=== PATIENT | male | born 1935 | race Caucasian/White ===

== ENCOUNTER 2021-03-04 20:41 | Observation (INO) | payer MEDICARE ==
[2021-03-04] MEDS ORDERED: Acetaminophen 325 MG TAB PO PRN (22:54)
[2021-03-04] MEDS ORDERED: Nitroglycerin 0.4 MG TAB (25 Tab Bottle) SL PRN (22:54)
[2021-03-04] MEDS ORDERED: Nitroglycerin 2% Ointment 1 INCH/1 GM Packet ONE (23:31)
[2021-03-04 23:46] LABS: Troponin I Less than 0.010 ng/mL (< 0.028)
[2021-03-04] MEDS ORDERED: Nitroglycerin 2% Ointment 1 INCH/1 GM Packet TOP SCH (23:59)
[2021-03-05 02:21] LABS: Platelet Count 98 10x3/uL (150-450)
[2021-03-05 02:22] LABS: Hemoglobin 13.2 g/dL (13.5-17.5); Mean Corpuscular Hemoglobin 30.6 pg (27.0-33.0); Mean Corpuscular Volume 87.5 fl (81.2-95.1); Mean Platelet Volume 9.8 fl (7.4-10.4); RBC Distribution Width 12.8 % (11.5-14.5); Red Blood Cell (RBC) Count 4.31 10x6/uL (4.32-5.72); White Blood Cell (WBC) Count 3.9 10x3/uL (3.5-10.5)
[2021-03-05 02:23] LABS: MDiff Complete? YES
[2021-03-05 02:29] LABS: Eosinophils 7 % (0-10); Monocytes 5 % (0-10); Neutrophil 38 % (42-75)
[2021-03-05 02:31] LABS: Lymphocytes 23 % (21-51); Reactive Lymphocytes 27 % (0-10); Troponin I Less than 0.010 ng/mL (< 0.028)
[2021-03-05 02:32] LABS: Platelet Morphology Comment Appears Decreased
[2021-03-05 02:58] LABS: Anion Gap 11 mmol/L (10-20); BUN (Urea Nitrogen) 12 mg/dL (8.4-25.7); Calc. Creatinine Clearance 0 mL/min (70-130); Carbon Dioxide 29 mmol/L (23-31); Cardiac Risk 2.9 (Less than 4.5); Chloride 107 mmol/L (98-107); Cholesterol 76 mg/dl (< 200 Desired); Glucose 98 mg/dL (83-110); HDL Cholesterol 26 mg/dL (>60 Neg Risk); LDL Cholesterol, Calculated 36 mg/dL; Potassium 3.7 mmol/L (3.5-5.1); Sodium 143 mmol/L (136-145); Triglycerides 68 mg/dL (Less than 150)
[2021-03-05] MEDS ORDERED: Levothyroxine 150 MCG TAB PO SCH (06:00)
[2021-03-05] MEDS ORDERED: Lisinopril 20 MG TAB PO SCH (09:00)
[2021-03-05] MEDS ORDERED: Aspirin Chewable 81 MG TAB PO SCH (09:00)
[2021-03-05] MEDS ORDERED: Tamsulosin HCl 0.4 MG CAP PO SCH (09:00)
[2021-03-05] MEDS ORDERED: Rivaroxaban 10 MG TAB PO SCH (09:00)
[2021-03-05 11:35] LABS: Hemoglobin A1c 6.1 % (4.0-6.0)
[2021-03-05] MEDS ORDERED: Rosuvastatin 10 MG TAB PO SCH (21:00)
== END 2021-03-05 05:00 | disposition home or self-care (01) ==
LOC: CSHERS 20:41 → CSHERHOLD 23:17
PROVIDERS: ADMIT Family Medicine; ATTEND Family Medicine
DX: R07.9 Chest pain, unspecified (principal); I48.91 Unspecified atrial fibrillation; I10 Essential (primary) hypertension; E11.9 Type 2 diabetes mellitus without complications; Z95.0 Presence of cardiac pacemaker; Z79.01 Long term (current) use of anticoagulants; Z79.82 Long term (current) use of aspirin; E03.9 Hypothyroidism, unspecified; E78.5 Hyperlipidemia, unspecified; K21.9 Gastro-esophageal reflux disease without esophagitis; Z85.46 Personal history of malignant neoplasm of prostate
CPT/HCPCS: 80048; 80061; 83036; 83735; 84443; 84484 ×2; 85025; 99285; G0378 ×2; 36415

== ENCOUNTER 2021-09-19 15:41 | Emergency (ER) | payer MEDICARE ==
[2021-09-19] MEDS ORDERED: traMADol HCl 50 MG TAB ONE ×2 (16:38→19:01)
== END 2021-09-19 19:10 | disposition home or self-care (01) ==
LOC: CSHERS 15:41
DX: M54.50 Low back pain, unspecified (principal); I48.91 Unspecified atrial fibrillation; E11.9 Type 2 diabetes mellitus without complications; E03.9 Hypothyroidism, unspecified; K21.9 Gastro-esophageal reflux disease without esophagitis; I10 Essential (primary) hypertension; F17.220 Nicotine dependence, chewing tobacco, uncomplicated
CPT/HCPCS: 72131

== ENCOUNTER 2021-11-08 11:54 | Emergency (ER) | payer MEDICARE ==
[2021-11-08 13:54] LABS: #Eosinphils 0.1 10x3/uL (0.0-0.5); #Monocytes 0.7 10x3/uL (0.0-1.1); #Neutrophils 5.5 10x3/uL (1.5-8.4); %Basophils 0.1 % (0.0-2.0); %Eosinophils 1.1 % (0.0-6.0); %Lymphocytes 20.8 % (18.0-47.0); %Monocytes 8.5 % (0.0-10.0); %Neutrophils 69.2 % (40.0-75.0); Hemoglobin 11.4 g/dL (13.5-17.5); Mean Corpuscular HGB CONC 34.5 g/dL (32.0-36.0); Mean Corpuscular Hemoglobin 31.3 pg (27.0-33.0); Mean Corpuscular Volume 90.7 fl (81.2-95.1); Mean Platelet Volume 9.9 fl (7.4-10.4); Platelet Count 106 10x3/uL (150-450); RBC Distribution Width 13.4 % (11.5-14.5); Red Blood Cell (RBC) Count 3.64 10x6/uL (4.32-5.72)
[2021-11-08 14:01] LABS: Anion Gap 11 mmol/L (10-20); BUN (Urea Nitrogen) 18 mg/dL (8.4-25.7); Calc. Creatinine Clearance 0 mL/min (70-130); Carbon Dioxide 31 mmol/L (23-31); Chloride 101 mmol/L (98-107); Glucose 140 mg/dL (83-110); Potassium 3.7 mmol/L (3.5-5.1); Sodium 139 mmol/L (136-145)
[2021-11-08 14:53] LABS: Bilirubin Neg (Negative); Blood, Urine Negative (Negative); Clarity Clear (Clear); Glucose, Urine (Dipstick) Normal (Negative); Ketone, Urine 15 mg/dL (Negative); Leukocyte Negative (Negative); Nitrite Negative (Negative); Protein, Urine (Dipstick) 15 mg/dl (Neg-Trace)
== END 2021-11-08 15:18 | disposition home or self-care (01) ==
LOC: CSHERS 11:54
DX: F03.90 Unspecified dementia, unspecified severity, without behavioral disturbance, psychotic disturbance, mood disturbance, and anxiety (principal); R63.8 Other symptoms and signs concerning food and fluid intake; L89.159 Pressure ulcer of sacral region, unspecified stage; I10 Essential (primary) hypertension; I48.91 Unspecified atrial fibrillation; E11.9 Type 2 diabetes mellitus without complications; E03.9 Hypothyroidism, unspecified; K21.9 Gastro-esophageal reflux disease without esophagitis; F17.220 Nicotine dependence, chewing tobacco, uncomplicated
CPT/HCPCS: 80048; 81003; 85025; 99283